=== PATIENT | male | born 1960 | race African-American/Black ===

== ENCOUNTER 2020-09-21 17:48 | Inpatient (IN) | payer OTHER ==
[2020-09-21 18:44] VITALS: BMI 24.9
[2020-09-21] MEDS ORDERED: MENTHOL/PHENOL 1 EACH UD MM PRN (19:53)
[2020-09-21] MEDS ORDERED: IBUPROFEN 400 MG TABLET (FP) PO PRN (19:53)
[2020-09-21] MEDS ORDERED: ACETAMINOPHEN 325 MG TABLET (FP) PO PRN ×2 (19:53)
[2020-09-21] MEDS ORDERED: ONDANSETRON *ODT* 4 MG TABLET SL PRN (19:53)
[2020-09-21] MEDS ORDERED: BISMUTH SUBSALICYLATE 524 MG/30 ML PO PRN (19:53)
[2020-09-21] MEDS ORDERED: MAGNESIUM HYDROX 2400MG/30ML ORAL SUSPENSION 30 ML CUP PO PRN (19:53)
[2020-09-21] MEDS ORDERED: MAG HYDROX/AL HYDROX/SIMETH 30 ML UNIT-DOSE CUP PO PRN (19:53)
[2020-09-21] MEDS ORDERED: NICOTINE POLACRILEX 2 MG GUM BUC PRN (19:53)
[2020-09-21] MEDS ORDERED: MAGNESIUM CITRATE 300 ML BOTTLE PO PRN (19:53)
[2020-09-21] MEDS: THIAMINE HCL 100 MG TABLET (FP) PO SCH (23:19)
[2020-09-21] MEDS: METHOCARBAMOL 500 MG TABLET PO PRN (23:19)
[2020-09-21] MEDS: MELATONIN 5 MG TABLETS PO SCH (23:19)
[2020-09-22] MEDS ORDERED: cloNIDine HCL 0.1 MG TABLET PO ONE (05:41)
[2020-09-22] MEDS: METHOCARBAMOL 500 MG TABLET PO PRN (06:51)
[2020-09-22] MEDS ORDERED: methaDONE HCL 10 MG TABLET (FOR DETOX USE ONLY) PO ONE (09:08)
[2020-09-22 09:59] LABS: HEMATOCRIT 47.1 % (35.4-49); HEMOGLOBIN 15.4 GM/dL (11.7-16.9); MCH 28.6 pg (25.7-33.7); MCHC 32.8 g/dl (32.0-35.9); MEAN CELL VOLUME 87.1 fl (80-96); MEAN PLT VOLUME 8.9 fl (7.5-11.1); PLATELET COUNT 159 10^3/uL (134-434); RDW 13.1 % (11.9-15.9); WHITE BLOOD COUNT 2.6 K/mm3 (4.0-10.0)
[2020-09-22] MEDS: PRENATAL VITAMINS W/ FOLIC ACID TABLET (FP) PO SCH (10:22)
[2020-09-22] MEDS: NICOTINE 14 MG/24 HOURS TOPICAL PATCH TD SCH (10:22)
[2020-09-22 10:25] LABS: ALBUMIN 3.5 g/dl (3.4-5.0); BLOOD UREA NITROGEN 14.2 mg/dL (7-18); CALCIUM 8.6 mg/dL (8.5-10.1)
[2020-09-22 10:30] LABS: TOT PROT 7.2 g/dl (6.4-8.2)
[2020-09-22 10:38] LABS: BILIRUBIN,TOTAL 1.1 mg/dL (0.2-1)
[2020-09-22] MEDS: cloNIDine HCL 0.1 MG TABLET PO PRN ×2 (13:27→19:06)
[2020-09-22] MEDS: diazePAM 5 MG TABLET PO PRN ×2 (13:27→22:31)
[2020-09-22] MEDS: MELATONIN 5 MG TABLETS PO SCH (22:31)
[2020-09-22] MEDS: THIAMINE HCL 100 MG TABLET (FP) PO SCH (22:31)
[2020-09-23] MEDS ORDERED: methaDONE HCL 10 MG TABLET (FOR DETOX USE ONLY) ONE (09:08)
[2020-09-23 10:08] LABS: BASO % 0.6 % (0-2.0); EOS % 0.3 % (0-4.5); HEMATOCRIT 51.5 % (35.4-49); MCH 28.5 pg (25.7-33.7); MCHC 32.9 g/dl (32.0-35.9); MEAN CELL VOLUME 86.6 fl (80-96); MEAN PLT VOLUME 9.2 fl (7.5-11.1); MONO % 10.4 % (3.8-10.2); NEUT % 63.7 % (42.8-82.8); PLATELET COUNT 175 10^3/uL (134-434); RBC 5.95 M/mm3 (4.00-5.60); RDW 12.9 % (11.9-15.9); WHITE BLOOD COUNT 3.3 K/mm3 (4.0-10.0)
[2020-09-23] MEDS: PRENATAL VITAMINS W/ FOLIC ACID TABLET (FP) PO SCH (10:19)
[2020-09-23] MEDS: NICOTINE 14 MG/24 HOURS TOPICAL PATCH TD SCH (10:19)
[2020-09-23] MEDS: diazePAM 5 MG TABLET PO PRN ×2 (10:20→23:18)
[2020-09-23] MEDS: THIAMINE HCL 100 MG TABLET (FP) PO SCH (23:19)
[2020-09-23] MEDS: MELATONIN 5 MG TABLETS PO SCH (23:19)
[2020-09-24] MEDS ORDERED: methaDONE HCL 10 MG TABLET (FOR DETOX USE ONLY) PO ONE (10:00)
[2020-09-24] MEDS: METHOCARBAMOL 500 MG TABLET PO PRN (10:32)
[2020-09-24] MEDS: NICOTINE 14 MG/24 HOURS TOPICAL PATCH TD SCH (10:33)
[2020-09-24] MEDS: PRENATAL VITAMINS W/ FOLIC ACID TABLET (FP) PO SCH (10:33)
[2020-09-24] MEDS: MELATONIN 5 MG TABLETS PO SCH (22:54)
[2020-09-24] MEDS: THIAMINE HCL 100 MG TABLET (FP) PO SCH (22:54)
[2020-09-24] MEDS: diazePAM 5 MG TABLET PO PRN (22:54)
[2020-09-25] MEDS ORDERED: methaDONE HCL 10 MG TABLET (FOR DETOX USE ONLY) ONE (08:51)
[2020-09-25] MEDS: diazePAM 5 MG TABLET PO PRN (08:52)
[2020-09-25] MEDS: PRENATAL VITAMINS W/ FOLIC ACID TABLET (FP) PO SCH (10:51)
[2020-09-25] MEDS: NICOTINE 14 MG/24 HOURS TOPICAL PATCH TD SCH (10:52)
[2020-09-25] MEDS: THIAMINE HCL 100 MG TABLET (FP) PO SCH (22:36)
[2020-09-25] MEDS: MELATONIN 5 MG TABLETS PO SCH (22:36)
[2020-09-26] MEDS ORDERED: methaDONE HCL 10 MG TABLET (FOR DETOX USE ONLY) PO ONE (10:00)
[2020-09-26] MEDS ORDERED: ACETAMINOPHEN 325 MG TABLET (FP) PO ONE (10:13)
[2020-09-26] MEDS: PRENATAL VITAMINS W/ FOLIC ACID TABLET (FP) PO SCH (10:27)
[2020-09-26] MEDS: METHOCARBAMOL 500 MG TABLET PO PRN ×2 (10:29→22:19)
[2020-09-26] MEDS: NICOTINE 14 MG/24 HOURS TOPICAL PATCH TD SCH (10:30)
[2020-09-26] MEDS: MELATONIN 5 MG TABLETS PO SCH (22:18)
[2020-09-26] MEDS: THIAMINE HCL 100 MG TABLET (FP) PO SCH (22:18)
[2020-09-27] MEDS: NICOTINE 14 MG/24 HOURS TOPICAL PATCH TD SCH (10:19)
[2020-09-27] MEDS: PRENATAL VITAMINS W/ FOLIC ACID TABLET (FP) PO SCH (10:19)
[2020-09-27 13:37] VITALS: BP 129/82; PULSE 84; TEMP 96.8
== END 2020-09-27 12:55 | disposition home or self-care (01) | DRG 897 ==
LOC: YASAS 17:48 → UNDOADMIN 20:12 → Y3N 20:12
PROVIDERS: ADMIT Allergy & Immunology; ATTEND Allergy & Immunology
PROC: HZ2ZZZZ Detoxification Services for Substance Abuse Treatment (ICD-10-PCS; principal; 2020-09-21)
DX: F11.23 Opioid dependence with withdrawal (principal); F14.20 Cocaine dependence, uncomplicated; F17.210 Nicotine dependence, cigarettes, uncomplicated; M54.5 Low back pain; G89.29 Other chronic pain; R73.9 Hyperglycemia, unspecified
CPT/HCPCS: 36415; 80053; 82947; 85025; 85027; 86780; 93005; 93010; C9803; J0735; U0003; U0005